=== PATIENT | female | born 1985 | race Caucasian/White ===

== ENCOUNTER 2019-02-05 12:39 | Emergency (ER) | payer MEDICAID ==
[~2019-02-05] VITALS: Ht 154.9 cm; Wt 72.6 kg
[2019-02-05 12:48] VITALS: BP 142/95
[2019-02-05] MEDS ORDERED: PREG150C PO (12:57)
[2019-02-05] MEDS ORDERED: ATOR10TA PO (12:58)
[2019-02-05] MEDS ORDERED: INSU100S22 SUBQ (12:59)
[2019-02-05] MEDS ORDERED: INSU100S45 SUBQ (13:01)
[2019-02-05] MEDS ORDERED: TRAM50TA1 PO (13:02)
[2019-02-05] MEDS ORDERED: METO25TA14 PO (13:03)
[2019-02-05] MEDS ORDERED: METO-744 PO (13:04)
--- NOTE | 2019-02-05 13:10 | NUR ---
PT PRESENTS TO ED FOR MEDICATION REFILL; PT STATES SHE RECENTLY MOVED TO [place] FROM [place] AND HAS BEEN WITHOUT RX MEDICATION FOR APPROX 3 DAYS.
--- NOTE | 2019-02-05 13:15 | NUR ---
DR BORGES EVALUATING PT AT THIS TIME
[2019-02-05 13:44] VITALS: BP 140/93
--- NOTE | 2019-02-05 13:45 | NUR ---
Patient discharged with v/s stable. Written and verbal after care instructions given and explained. Patient alert, oriented and verbalized understanding of instructions. Wheel Chair Assisted with to car. All questions addressed prior to discharge. ID band removed. Patient advised to follow up with PMD. Rx of Metoprolol, Vistaril, Ambien, Atorvastatin, Klonopin, Naproxen, Effexor and Artificial Tears given. Patient educated on indication of medication including possible reaction and side effects. Opportunity to ask questions provided and answered.
== END 2019-02-05 13:45 | disposition home or self-care (01) ==
LOC: MED 12:39
DX: I10 Essential (primary) hypertension (principal); Z76.0 Encounter for issue of repeat prescription; E11.65 Type 2 diabetes mellitus with hyperglycemia; E11.42 Type 2 diabetes mellitus with diabetic polyneuropathy; F41.9 Anxiety disorder, unspecified; F32.9 Major depressive disorder, single episode, unspecified; E78.00 Pure hypercholesterolemia, unspecified; Z79.4 Long term (current) use of insulin; Z79.899 Other long term (current) drug therapy; Z88.0 Allergy status to penicillin
CPT/HCPCS: 82948; 99283